=== PATIENT | female | born 1960 | race Caucasian/White ===

== ENCOUNTER → 2020-02-16 11:39 | Outpatient (BNVA) | payer OTHER, SELFPAY | PROVIDERS: PCP Internal Medicine; Referring Provider Internal Medicine; Visit Provider Obstetrics & Gynecology | DX: Z76.89 Persons encountering health services in other specified circumstances (principal) ==

== ENCOUNTER 2020-02-22 13:15 | Emergency (ER) | payer OTHER, SELFPAY ==
[2020-02-22 13:25] VITALS: BP 133/90; PULSE 73; RESP 17; TEMP 35.2; O2SAT 98; BMI 30.7
--- NOTE | 2020-02-22 13:44 | ECG_ITS ---
Test Reason : ANXIETY Blood Pressure : / mmHG Vent. Rate : 079 BPM Atrial Rate : 079 BPM P-R Int : 144 ms QRS Dur : 076 ms QT Int : 378 ms P-R-T Axes : 052 029 022 degrees QTc Int : 433 ms Normal sinus rhythm RSR' or QR pattern in V1 suggests right ventricular conduction delay Otherwise normal ECG When compared with ECG of 14-NOV-2012 20:10, No significant change was found Referred By: Salina Silva Electronically Signed By:ALEX WILSON MD
--- NOTE | 2020-02-22 13:46 | ED_ITS ---
HPI - Anxiety General Chief Complaint: Anxiety Stated Complaint: difficulty breathing Time Seen by Provider: 02/22/20 13:39 Source: patient Mode of arrival: ambulatory Limitations: no limitations History of Present Illness HPI narrative: patient comes to the emergency room after having a panic attack at work. Patient states since March of last year her anxiety has gradually been worsening after from her partner. Patient states she is being treated with p.o. medication for anxiety. This morning she did not take her medication. patient states that for the last 4-5 days she has been asked to do a new task at work which she has difficulty performing. That created anxiety and drove her into a panic attack. At this time, patient states that she feels better, patient drove herself from her workplace. Patient states while she was having the panic attack she was having shortness of breath and left-sided neck pain which all resolved now. patient states she has had multiple episodes of anx iety and panic attacks in the past. All similar. Related Data Home Medications Medication Instructions Recorded Confirmed buspirone 10 mg tablet 10 mg PO BID 02/16/20 02/16/20 levothyroxine 100 mcg tablet 100 mcg PO DAILY 02/16/20 02/16/20 losartan 50 mg tablet 50 mg PO DAILY 02/16/20 02/16/20 pravastatin 20 mg tablet mg PO 02/16/20 02/16/20 Allergies Allergy/AdvReac Type Severity Reaction Status Date / Time Penicillins [PENICILLINS] Allergy Intermediate RASH Unverified 02/16/20 11:40 vancomycin [VANCOMYCIN] Allergy Intermediate ITCHY, RED Unverified 02/16/20 11:40 BLOTCHES. lisinopril Allergy Unknown cough Verified 02/16/20 11:40 Review of Systems Review of Systems: Constitutional : No Weight loss, No Fever, No Chills, No Night Sweats, No Fatigue, No Malaise ENT/Mouth : No Hearing loss, No Ear Pain, No Nasal Congestion, No Sinus Pain, No Hoarseness, No sore throat, No Rhinorrhea, No Swallowing Difficulty Eyes: No Eye Pain, No Swelling, No Redness, No Foreign Body, No Discharge, No Vision Changes Cardiovascular : chest pressure with the panic attack no results., No SOB, No Dyspnea on Exertion, No Orthopnea, No Edema, No Palpitations Respiratory : No Cough, No Sputum, No Wheezing, No Smoke Exposure, Shortness of breath with panic attack Gastrointestinal : No Nausea, No Vomiting, No Diarrhea, No Constipation, No abdominal Pain, No Hematochezia, No Melena Genitourinary : no irregular bleeding, No Dysuria, No Urinary Frequency, No Hematuria, No Urinary Incontinence, No Urgency, No Flank Pain, No Urinary Flow Changes, No Hesitancy Musculoskeletal : No joint pain, No Myalgias, No Joint Swelling Skin : No Skin Lesions, No rash Neuro : No Weakness, No Numbness, No Paresthesias, No Loss of Consciousness, No Dizziness, No Headache Psych : Anxiety and panic attack, No Depression, No SI/HI/AH/VH, No Social Issues, Heme/Lymph: No Bruising, No Bleeding,No Lymphadenopathy Endocrine : No Polyuria, No Polydipsia, No Temperature Intolerance [facility] Past Medical History Medical History Anxiety Depression HTN (hypertension) Hyperlipemia Hypothyroidism Surgical History H/O abdominoplasty H/O bilateral breast reduction surgery History of removal of cyst Social History Social History Alcohol intake: never Smoking Status: Never smoker Advance Directives: No Advance Directives Information Provided: Yes Sexual orientation: Straight/Heterosexual Gender identity: female Physical Exam Vital Signs: Vital Signs: Vital Signs Temp Pulse Resp BP Pulse Ox 02/22/20 13:25 95.3 F L 73 17 133/90 H 98 Body Mass Index 30.7 Appearance: Alert. Oriented X3. No acute distress. mildly anxious, tearing Eyes: Pupils equal, round and reactive to light. ENT: Pharynx normal. Neck: Normal inspection. Neck supple. No lymph nodes noted. No crepitus CVS: Normal heart rate and rhythm. Pulses normal. Normal S1 and S2 Respiratory: No respiratory distress. Breath sounds normal. No Wheezing. No rales Abdomen: Soft and nontender. No rigidity. No distention. good BS x4 Skin: Skin warm and dry. Normal skin color. Normal skin turgor. Extremities: No lower extremity edema. No lower extremity edema. No Lacerations. No Rash Neuro: Oriented X 3. No motor deficit. No sensory deficit. Moving all exte rmities. No slurred speech. Course Course Course Narrative: patient had a panic attack, EKG within normal limits. After Ativan patient feeling much better. Patient be discharged home. I discussed with the patient, that ideally she should be treated for anxiety with both medication and Therapy. She will discuss this with her primary care physician. Discharge Plan Discharge Clinical Impression: Acute anxiety Patient Disposition: Home, Self-Care Instructions: Anxiety (ED) Additional Instructions: Please follow-up with your primary care physician tomorrow. If you have any worsening or new symptoms, please return to the emergency room or call 911 Prescriptions: No Action pravastatin 20 mg tablet PO RF: 0 levothyroxine 100 mcg tablet 100 mcg PO DAILY RF: 0 losartan 50 mg tablet 50 mg PO DAILY RF: 0 buspirone 10 mg tablet 10 mg PO BID RF: 0
[2020-02-22] MEDS: hydrOXYzine HCL 50 MG TABLET PO (15:03)
[2020-02-24 22:27] LABS: CA-125 4 U/mL (<35)
== END 2020-02-22 15:09 | disposition home or self-care (01) ==
PROVIDERS: Obstetrics & Gynecology; Emergency Provider Emergency Medicine; PCP Internal Medicine
DX: F41.1 Generalized anxiety disorder (principal); F43.0 Acute stress reaction; Z79.899 Other long term (current) drug therapy
CPT/HCPCS: 86304; 93005; 99283

== ENCOUNTER 2020-02-22 15:23 | Outpatient (REF) | payer OTHER, SELFPAY | END 2020-02-22 15:24 | disposition home or self-care (01) | LOC: HO.LAB 15:23 | PROVIDERS: PCP Internal Medicine; Visit Provider Obstetrics & Gynecology | DX: Z13.89 Encounter for screening for other disorder (principal) ==

== ENCOUNTER 2020-03-05 14:51 | Outpatient (REF) | payer OTHER, SELFPAY ==
[2020-03-05 15:15] LABS: MANUAL DIFF FLAG NO
[2020-03-05 15:17] LABS: Basophils Percent Auto 0.4 % (0-2); Eosinophils Absolute Auto 0.1 X10*3/uL (0.0-0.4); Eosinophils Percent Auto 1.5 % (0-4); Hematocrit 38.2 % (37-47); Hemoglobin 12.1 g/dl (12.0-16.0); Imm Gran Abs Auto 0.02 X10*3/uL (0.00-0.03); Imm Gran Pct Auto 0.3 % (0.0-0.4); Lymphocytes Absolute Auto 2.5 X10*3/uL (1.2-4.9); Lymphocytes Percent Auto 35.8 % (20-40); Mean Corpuscular HGB Conc 31.7 g/dl (31.0-35.0); Mean Corpuscular Hemoglobin 27.6 pg (27.0-33.0); Mean Platelet Volume 10.4 fL (9.4-12.3); Monocytes Absolute Auto 0.6 X10*3/uL (0.1-1.2); Neutrophils Absolute Auto 3.7 X10*3/uL (2.0-8.3); Platelet Count 232 X10*3/uL (160-400); Red Blood Count 4.39 X10*6/uL (4.20-5.50); Red Cell Distribution Width 12.6 % (11.0-16.0); White Blood Count 6.9 X10*3/uL (4.8-10.8)
[2020-03-05 15:41] LABS: Alanine Aminotransferase 23 U/L (0-31); Albumin Level 4.2 g/dL (3.5-5.0); Alkaline Phosphatase 91 U/L (39-117); Anion Gap 10 (12-20); Aspartate Amino Transferase 24 U/L (5-31); Bilirubin Total 0.6 mg/dL (0.0-1.0); Blood Urea Nitrogen 15 mg/dL (9-16); Calcium 8.8 mg/dL (8.4-10.2); Carbon Dioxide 29 mmol/L (22-29); Chloride 105 mmol/L (96-108); Estimated Glomerular Filt Rate 46; Glucose Random 80 mg/dL (60-115); Potassium 4.1 mmol/l (3.3-5.1); Sodium 140 mmol/L (135-145); Total Protein 6.6 g/dL (6.5-8.0)
[2020-03-05 16:03] LABS: Free T4 (Free Thyroxine) 1.27 ng/dL (0.71-1.85); Vitamin D 25-OH Total 22.6 ng/mL (>30)
== END 2020-03-05 14:52 | disposition home or self-care (01) ==
LOC: HO.LAB 14:51
PROVIDERS: PCP Internal Medicine; Visit Provider Internal Medicine
DX: I10 Essential (primary) hypertension (principal); E03.9 Hypothyroidism, unspecified; E55.9 Vitamin D deficiency, unspecified; G47.33 Obstructive sleep apnea (adult) (pediatric)
CPT/HCPCS: 36415; 80053; 82306; 84439; 84443; 85025

== ENCOUNTER 2020-03-06 15:15 | Outpatient (REF) | payer OTHER, SELFPAY ==
--- NOTE | 2020-03-06 15:19 | US_ITS ---
EXAMINATION: US PELVIS COMPLETE US PELVIS ENDOVAGINAL CLINICAL INFORMATION: Other ovarian cyst, left side COMPARISON: 09/15/2019 and 11/09/2015 TECHNIQUE: Transabdominal and transvaginal images of the pelvis were obtained. FINDINGS: UTERUS: Surgically absent status post hysterectomy. RIGHT OVARY: Not seen. LEFT OVARY: Left ovary measures 2.0 x 1.1 x 1.1 cm. Exophytic from the left ovary is a 2.9 x 2.5 x 2.3 cm cyst with internal septations and several peripheral coarse calcifications. This is been present on prior studies with a similar appearance. It measured 2.9 x 2.5 x 2.2 cm on the recent ultrasound 09/15/2019. It was also seen on the prior pelvic ultrasound 11/09/2015 at which time it measured 2.9 x 2.1 x 2.6 cm. There was present in most 2.9 cm in diameter on the CT scan 10/22/2015. FREE FLUID: No pelvic free fluid. US/US pelvic complete IMPRESSION: Again seen is a mildly complex cyst exophytic from the left ovary at most 2.9 cm in diameter. Although a cyst greater than 1 cm is considered an abnormal finding in a postmenopausal female patient, this finding has been stable for 4+ years, reassuring of a benign etiology.
--- NOTE | 2020-03-06 15:19 | US_ITS ---
EXAMINATION: US PELVIS COMPLETE US PELVIS ENDOVAGINAL CLINICAL INFORMATION: Other ovarian cyst, left side COMPARISON: 09/15/2019 and 11/09/2015 TECHNIQUE: Transabdominal and transvaginal images of the pelvis were obtained. FINDINGS: UTERUS: Surgically absent status post hysterectomy. RIGHT OVARY: Not seen. LEFT OVARY: Left ovary measures 2.0 x 1.1 x 1.1 cm. Exophytic from the left ovary is a 2.9 x 2.5 x 2.3 cm cyst with internal septations and several peripheral coarse calcifications. This is been present on prior studies with a similar appearance. It measured 2.9 x 2.5 x 2.2 cm on the recent ultrasound 09/15/2019. It was also seen on the prior pelvic ultrasound 11/09/2015 at which time it measured 2.9 x 2.1 x 2.6 cm. There was present in most 2.9 cm in diameter on the CT scan 10/22/2015. FREE FLUID: No pelvic free fluid. US/US transvaginal IMPRESSION: Again seen is a mildly complex cyst exophytic from the left ovary at most 2.9 cm in diameter. Although a cyst greater than 1 cm is considered an abnormal finding in a postmenopausal female patient, this finding has been stable for 4+ years, reassuring of a benign etiology.
== END 2020-03-06 15:16 | disposition home or self-care (01) ==
LOC: HO.US 15:15
PROVIDERS: PCP Internal Medicine; Visit Provider Obstetrics & Gynecology
DX: N83.292 Other ovarian cyst, left side (principal)
CPT/HCPCS: 76830; 76856

== ENCOUNTER → 2020-03-08 11:05 | Outpatient (BNVA) | payer OTHER, SELFPAY | PROVIDERS: PCP Internal Medicine; Visit Provider Obstetrics & Gynecology | DX: Z76.89 Persons encountering health services in other specified circumstances (principal) ==

== ENCOUNTER 2020-03-10 09:14 | Outpatient (REF) | payer OTHER, SELFPAY ==
[2020-03-12 19:12] LABS: CA-125 5 U/mL (<35)
== END 2020-03-10 09:15 | disposition home or self-care (01) ==
LOC: HO.LAB 09:14
PROVIDERS: PCP Internal Medicine; Visit Provider Obstetrics & Gynecology
DX: N83.292 Other ovarian cyst, left side (principal)
CPT/HCPCS: 86304

== ENCOUNTER 2020-03-16 13:27 | Outpatient (REF) | payer OTHER, SELFPAY | END 2020-03-16 13:28 | disposition home or self-care (01) | LOC: HO.LAB 13:27 | PROVIDERS: Visit Provider Internal Medicine | DX: Z20.828 Contact with and (suspected) exposure to other viral communicable diseases (principal) | CPT/HCPCS: C9803; U0003 ==

== ENCOUNTER 2020-08-30 18:23 | Emergency (ER) | payer OTHER, SELFPAY ==
--- NOTE | ~2020-08-30 | US_ITS ---
EXAMINATION: BILATERAL LOWER EXTREMITY DEEP VENOUS ULTRASOUND CLINICAL INFORMATION: Bilateral lower extremity pain and edema. COMPARISON: No similar prior examinations are available for comparison. TECHNIQUE: Duplex Doppler imaging with compression maneuvers were performed of the bilateral lower extremity deep venous systems. FINDINGS: The bilateral visualized common femoral, femoral and popliteal veins demonstrate normal compressibility and color flow without evidence of venous thrombosis. Visualized portions of the bilateral calf veins demonstrate normal color fill-in suggesting patency. There is no evidence of a Chapin's cyst. US/US venous duplex LE BI IMPRESSION: No evidence of deep venous thrombosis involving the bilateral lower extremities.
[2020-08-30 18:27] VITALS: BP 141/78; PULSE 90; RESP 18; TEMP 36.6; O2SAT 97; BMI 30.4
--- NOTE | 2020-08-30 19:35 | ED.EXTPRO ---
HPI - Extremity Problem General Chief complaint: Extremity Problem Stated complaint: Leg pain Time Seen by Provider: 08/30/20 19:24 Source: patient Mode of arrival: ambulatory Limitations: no limitations History of Present Illness HPI Narrative: 59-year-old female with past medical history of anxiety, depression, hypertension, hyperlipidemia, hypothyroidism presents with 3 weeks of weakness. Patient states she felt fine prior to receiving Raffaele Raffaele vaccine. Since she received the vaccine she had felt a week, her legs felt heavy and swollen. She does not describe any other symptoms, denies chest pain or pressure, palpitations, shortness of breath, shortness breath on exertion, pain on inspiration, abdominal pain, abdominal distention, dysuria, hematuria, fevers, chills, nausea, vomiting, diarrhea, constipation, and any other concerning symptoms. Related Data Home Medications Medication Instructions Recorded Confirmed buspirone 10 mg tablet 10 mg PO BID 02/16/20 03/08/20 levothyroxine 100 mcg tablet 100 mcg PO DAILY 02/16/20 03/08/20 losartan 50 mg tablet 50 mg PO DAILY 02/16/20 03/08/20 pravastatin 20 mg tablet mg PO 02/16/20 03/08/20 Allergies Allergy/AdvReac Type Severity Reaction Status Date / Time Penicillins [PENICILLINS] Allergy Intermediate RASH Verified 08/30/20 19:27 vancomycin [VANCOMYCIN] Allergy Intermediate ITCHY, RED Verified 08/30/20 19:27 BLOTCHES. lisinopril Allergy Unknown cough Verified 08/30/20 19:27 Review of Systems Review of Systems: Constitutional: Positive weakness, No Fever, No Chills ENT/Mouth: No Ear Pain, No Hoarseness, No sore throat Eyes: No Eye Pain, No Swelling, No Redness, No Foreign Body Cardiovascular: No Chest Pain, No SOB Respiratory: No Cough, No Dyspnea Gastrointestinal: No Nausea, No Vomiting, No Diarrhea, No abdominal Pain Genitourinary: No Dysuria, No Hematuria Musculoskeletal: positive bilateral leg pain and swelling, No Myalgias, No Joint Swelling Skin: No Skin lacerations, No rash Neuro: No Weakness, No Numbness, No Paresthesias, No Loss of Consciousness, No Dizziness, No Headache Psych: No Anxiety/Panic, No Depression Heme/Lymph: no easy bruising, no Lymphadenopathy Endocrine: No Polyuria, No Polydipsia Yes all other systems are reviewed and are negative PMFSH Past Medical History Attestation statement: The following information was validated with the patient. Source: old records reviewed Medical History Anxiety Depression HTN (hypertension) Hyperlipemia Hypothyroidism Surgical History H/O abdominoplasty H/O bilateral breast reduction surgery History of removal of cyst Social History Social History Alcohol intake: never Smoking Status: Never smoker Advance Directives: No Advance Directives Information Provided: Yes Patient : No Sexual orientation: Straight/Heterosexual Gender identity: female Physical Exam Vital Signs: Vital Signs: Last Vital Signs Temp 97.9 F 08/30/20 18:27 Pulse 64 08/30/20 21:33 Resp 16 08/30/20 21:33 BP 125/88 08/30/20 21:33 Pulse Ox 98 08/30/20 21:33 Body Mass Index 30.4 Appearance: Alert. Oriented X3. No acute distress. Head: Normal external exam. Normocephalic. Atraumatic. No Hand signs noted. No raccoon eyes noted Eyes: PERRLA. EOMI. Conjunctiva and sclera normal. Eyelids normal. ENT: TM's Normal. Pharynx normal. Uvula midline. Moist mucous membranes. No trismus noted. No drooling noted. No muffled voice noted. Neck: Normal inspection. Neck supple. No adenopathy. Thyroid Normal. No meningeal signs. No neck mass noted. CVS: Normal heart rate and rhythm. Heart sound normal. No murmurs noted. Pulses equal to all extremities. Respiratory: No respiratory distress. Painless inspiration. Breath sounds normal. No wheezes/rales/rhonchi noted. Chest nontender. No accessory muscle usage noted or decreased air movement noted. Abdomen: Soft and nontender. Bowel sounds normal in all 4 quadrants. No distention noted. No organomegaly noted. No visible injury noted. Back: No CVA tenderness. Full range of motion noted. Skin: Skin warm and dry. Normal skin color. Normal skin turgor. No rashes/lesions/lacerations noted. Extremities: No appreciated extremity edema. Extremities exhibit normal range of motion. Extremities nontender. Neuro: cranial nerves 2-12 intact, no focal neural deficits, strength 5/5 to all extremities, No motor deficit. No sensory deficit. Course Course Course Narrative: 59-year-old female presents with complaints of weakness, bilateral leg pain and swelling after receiving a Raffaele and Raffaele vaccine. Will order CBC, Chem 7, and bilateral venous duplex. I do not appreciate any swelling or edema, however based on patient's complaints over the past 3 weeks, will order duplex. CBC and Chem 7 are negative, urinalysis is negative. Bilateral venous duplex negative for acute findings, no blood clots noted. Plan of care is to discharge home and have patient follow-up with primary care provider as needed. Patient verbalized understanding of and agrees to plan of care. MDM - Extremity (Nontraumatic) Differential Diagnosis Differential diagnosis: Likely lower extremity edema and deep vein thrombosis of lower extremity Medical Records Attestation: I reviewed the patient's medical records. Lab Data Attestation: I reviewed the patient's lab results. Result diagrams: 08/30/20 19:49 08/30/20 19:49 Labs: Lab Results 08/30/20 08/30/20 08/30/20 Range/Units 19:49 19:49 20:05 WBC 6.7 (4.8-10.8) X10*3/uL RBC 4.44 (4.20-5.50) X10*6/uL Hgb 12.6 (12.0-16.0) g/dl Hct 38.3 (37-47) % MCV 86.3 (80-98) fL MCH 28.4 (27.0-33.0) pg MCHC 32.9 (31.0-35.0) g/dl RDW 12.5 (11.0-16.0) % Plt Count 220 (160-400) X10*3/uL MPV 10.9 (9.4-12.3) fL Immature Gran % (Auto) 0.0 (0.0-0.4) % Neut % (Auto) 50.5 (45-73) % Lymph % (Auto) 38.6 (20-40) % [place] % (Auto) 8.4 (2-11) % Eos % (Auto) 1.7 (0-4) % Baso % (Auto) 0.8 (0-2) % Lymph # (Auto) 2.6 (1.2-4.9) X10*3/uL [place] # (Auto) 0.6 (0.1-1.2) X10*3/uL Eos # (Auto) 0.1 (0.0-0.4) X10*3/uL Baso # (Auto) 0.1 (0.0-0.2) X10*3/uL Abs Immat Gran (auto) 0.00 (0.00-0.03) X10*3/uL Absolute Neuts (auto) 3.4 (2.0-8.3) X10*3/uL Absolute Nucleated RBC 0.000 (0.0-0.012) X10*3/uL Nucleated RBC % (auto) 0.0 (0.0-0.2) /100WBC Sodium 141 (135-145) mmol/L Potassium 3.7 (3.3-5.1) mmol/L Chloride 104 (96-108) mmol/L Carbon Dioxide 29 (22-29) mmol/L Anion Gap 12 (12-20) BUN 19 H (9-16) mg/dL Creatinine 1.16 (0.5-1.4) mg/dL Estim Creat Clear Calc 57.5 Estimated GFR 48 Random Glucose 123 H D (60-115) mg/dL Calcium 9.7 D (8.4-10.2) mg/dL Urine Color YELLOW Urine Appearance CLEAR Urine pH 5.5 (5.0-8.0) Ur Specific [place] >= 1.030 H (1.005-1.025) Urine Protein NEG (NEG-TRACE) MG/DL Urine Glucose (UA) NEG (NEG) MG/DL Urine Ketones NEG (NEG) MG/DL Urine Blood NEG (NEG) Urine Nitrite NEG (NEG) Ur Leukocyte Esterase NEG (NEG) Imaging Data Bilateral venous duplex: Attestation: I personally reviewed and interpreted this imaging study as follows: Radiologist's impression: EXAMINATION: BILATERAL LOWER EXTREMITY DEEP VENOUS ULTRASOUND CLINICAL INFORMATION: Bilateral lower extremity pain and edema. COMPARISON: No similar prior examinations are available for comparison. TECHNIQUE: Duplex Doppler imaging with compression maneuvers were performed of the bilateral lower extremity deep venous systems. FINDINGS: The bilateral visualized common femoral, femoral and popliteal veins demonstrate normal compressibility and color flow without evidence of venous thrombosis. Visualized portions of the bilateral calf veins demonstrate normal color fill-in suggesting patency. There is no evidence of a Chapin's cyst. US/US venous duplex LE BI IMPRESSION: No evidence of deep venous thrombosis involving the bilateral lower extremities. Discharge Plan Discharge Clinical Impression: Vaccine reaction Patient Disposition: Home, Self-Care Instructions: Weakness (ED) Additional Instructions: You were evaluated for leg pain and weakness that started after receiving a COVID-19 vaccine. Your lab values are normal, we did a bilateral venous duplex of both legs which were negative for blood clots. Please follow-up with primary care provider. Thank you for choosing this emergency department for evaluation. Please follow-up with primary care physician as needed. Return to the emergency department for any new, concerning, or worsening symptoms. Prescriptions: No Action pravastatin 20 mg tablet PO RF: 0 levothyroxine 100 mcg tablet 100 mcg PO DAILY RF: 0 losartan 50 mg tablet 50 mg PO DAILY RF: 0 buspirone 10 mg tablet 10 mg PO BID RF: 0 Interventions: ED Discharge Assessment Last Done: 08/30/20 22:07 Discharge Date/Time: 08/30/20 22:09
--- NOTE | 2020-08-30 19:35 | PC.NURSE ---
PT AMB TO [facility] WITH STEADY GAIT. PT STATES HAD BUSTER BUSTER VACCINE 3 WEEKS AGO AND NOW C/O BILAT CALF PAIN RAD UP INTO THIGHS. PPP. NEUROVASC INTACT.
[2020-08-30 19:55] LABS: Basophils Absolute Auto 0.1 X10*3/uL (0.0-0.2); Basophils Percent Auto 0.8 % (0-2); Eosinophils Absolute Auto 0.1 X10*3/uL (0.0-0.4); Eosinophils Percent Auto 1.7 % (0-4); Hematocrit 38.3 % (37-47); Hemoglobin 12.6 g/dl (12.0-16.0); Lymphocytes Absolute Auto 2.6 X10*3/uL (1.2-4.9); Lymphocytes Percent Auto 38.6 % (20-40); MANUAL DIFF FLAG NO; Mean Corpuscular HGB Conc 32.9 g/dl (31.0-35.0); Mean Corpuscular Hemoglobin 28.4 pg (27.0-33.0); Mean Corpuscular Volume 86.3 fL (80-98); Mean Platelet Volume 10.9 fL (9.4-12.3); Monocytes Absolute Auto 0.6 X10*3/uL (0.1-1.2); Monocytes Percent Auto 8.4 % (2-11); Neutrophils Absolute Auto 3.4 X10*3/uL (2.0-8.3); Neutrophils Percent Auto 50.5 % (45-73); Platelet Count 220 X10*3/uL (160-400); Red Blood Count 4.44 X10*6/uL (4.20-5.50); Red Cell Distribution Width 12.5 % (11.0-16.0); White Blood Count 6.7 X10*3/uL (4.8-10.8)
[2020-08-30 20:19] LABS: Anion Gap 12 (12-20); Blood Urea Nitrogen 19 mg/dL (9-16); Calcium 9.7 mg/dL (8.4-10.2); Carbon Dioxide 29 mmol/L (22-29); Chloride 104 mmol/L (96-108); Creatinine Clr Calc Pharmacy 57.5; Estimated Glomerular Filt Rate 48; Glucose Random 123 mg/dL (60-115); Potassium 3.7 mmol/L (3.3-5.1); Sodium 141 mmol/L (135-145)
[2020-08-30 20:24] LABS: Glucose Urine UA NEG (NEG); Leukocyte Esterase Urine NEG (NEG); Nitrite Urine NEG (NEG); PH 5.5 (5.0-8.0); Specific Gravity - Urine >= 1.030 (1.005-1.025); Urine Blood NEG (NEG); Urine Ketones NEG (NEG); Urine Protein NEG (NEG-TRACE)
[2020-08-30 20:25] LABS: Appearance Urine CLEAR; Color Urine YELLOW
[2020-08-30 21:33] VITALS: BP 125/88; PULSE 64; RESP 16; O2SAT 98
== END 2020-08-30 22:09 | disposition home or self-care (01) ==
PROVIDERS: Nurse Practitioner Family; Emergency Provider Internal Medicine; PCP Internal Medicine
DX: R53.1 Weakness (principal); T50.B95A Adverse effect of other viral vaccines, initial encounter; Y92.019 Unspecified place in single-family (private) house as the place of occurrence of the external cause; M79.662 Pain in left lower leg; M79.661 Pain in right lower leg; I10 Essential (primary) hypertension; E78.5 Hyperlipidemia, unspecified; Z79.02 Long term (current) use of antithrombotics/antiplatelets
CPT/HCPCS: 36415; 80048; 81003; 85025; 93970; 99284

== ENCOUNTER 2020-09-26 06:56 | Outpatient (REF) | payer OTHER, SELFPAY ==
[2020-09-26 07:42] LABS: MANUAL DIFF FLAG NO
[2020-09-26 07:58] LABS: Basophils Percent Auto 0.4 % (0-2); Eosinophils Absolute Auto 0.1 X10*3/uL (0.0-0.4); Eosinophils Percent Auto 1.9 % (0-4); Hematocrit 39.5 % (37-47); Hemoglobin 12.5 g/dl (12.0-16.0); Imm Gran Abs Auto 0.02 X10*3/uL (0.00-0.03); Imm Gran Pct Auto 0.3 % (0.0-0.4); Lymphocytes Absolute Auto 2.2 X10*3/uL (1.2-4.9); Lymphocytes Percent Auto 30.9 % (20-40); Mean Corpuscular HGB Conc 31.6 g/dl (31.0-35.0); Mean Corpuscular Hemoglobin 27.5 pg (27.0-33.0); Mean Platelet Volume 11.1 fL (9.4-12.3); Monocytes Absolute Auto 0.6 X10*3/uL (0.1-1.2); Monocytes Percent Auto 8.1 % (2-11); Neutrophils Absolute Auto 4.1 X10*3/uL (2.0-8.3); Neutrophils Percent Auto 58.4 % (45-73); Platelet Count 236 X10*3/uL (160-400); Red Blood Count 4.54 X10*6/uL (4.20-5.50); Red Cell Distribution Width 12.6 % (11.0-16.0)
[2020-09-26 08:41] LABS: Alanine Aminotransferase 20 U/L (0-31); Albumin Level 4.1 g/dL (3.5-5.0); Alkaline Phosphatase 100 U/L (39-117); Anion Gap 14 (12-20); Aspartate Amino Transferase 19 U/L (5-31); Bilirubin Total 0.4 mg/dL (0.0-1.0); Blood Urea Nitrogen 23 mg/dL (9-16); Calcium 9.2 mg/dL (8.4-10.2); Carbon Dioxide 27 mmol/L (22-29); Chloride 105 mmol/L (96-108); Cholesterol 219 mg/dL; Estimated Glomerular Filt Rate 46; Glucose Fasting 102 mg/dL (60-99); HDL Cholesterol 37 mg/dL; Potassium 4.5 mmol/L (3.3-5.1); Sodium 141 mmol/L (135-145); Total Protein 6.2 g/dL (6.5-8.0); Triglycerides 614 mg/dL
[2020-09-26 09:05] LABS: Free T4 (Free Thyroxine) 1.03 ng/dL (0.71-1.85); Thyroid Stimulating Hormone 3.17 uIU/mL (0.32-4.0); Vitamin D 25-OH Total 20.2 ng/mL (>30)
== END 2020-09-26 06:57 | disposition home or self-care (01) ==
LOC: HO.LAB 06:56
PROVIDERS: PCP Internal Medicine; Visit Provider Internal Medicine
DX: Z01.419 Encounter for gynecological examination (general) (routine) without abnormal findings (principal); I10 Essential (primary) hypertension; R10.9 Unspecified abdominal pain; E03.9 Hypothyroidism, unspecified; E78.00 Pure hypercholesterolemia, unspecified; E55.9 Vitamin D deficiency, unspecified
CPT/HCPCS: 36415; 80053; 80061; 82306; 84439; 84443; 85025

== ENCOUNTER 2020-10-19 15:35 | Outpatient (REF) | payer OTHER, SELFPAY ==
--- NOTE | ~2020-10-19 | MM_ITS ---
EXAMINATION: MM SCREENING DIGITAL BREAST TOMOSYNTHESIS, BILATERAL CLINICAL INFORMATION: Screening. Asymptomatic. The lifetime risk of breast cancer based on the Tyrer-Cuzick Model is 7.4%. COMPARISON: Mammography: December 03, 2018 and studies dating back to November 22, 2012 TECHNIQUE: Digital breast tomosynthesis is performed in both the craniocaudal and mediolateral oblique views along with computer-aided detection (CAD). Synthesized 2D images are generated from the tomosynthesis. FINDINGS: There are scattered areas of fibroglandular density (ACR BI-RADS breast composition Category b). There is no significant change from previous studies. Bilateral architectural distortion from previous surgery with scarring is again seen. MM/MM tomosynthesis screening BI IMPRESSION: There are no significant changes from prior study. ASSESSMENT: BI-RADS 2: Benign RECOMMENDATION: Routine annual mammography screening. This patient's information was entered into a reminder system with a target due date for their next mammogram.
== END 2020-10-19 15:36 | disposition home or self-care (01) ==
LOC: HO.MAMMO 15:35
PROVIDERS: Visit Provider Internal Medicine
DX: Z12.31 Encounter for screening mammogram for malignant neoplasm of breast (principal)
CPT/HCPCS: 77063; 77067

== ENCOUNTER 2021-01-21 14:35 | Outpatient (REF) | payer OTHER, SELFPAY ==
[2021-01-21 15:44] LABS: MANUAL DIFF FLAG NO
[2021-01-21 15:57] LABS: Basophils Percent Auto 0.7 % (0-2); Eosinophils Absolute Auto 0.2 X10*3/uL (0.0-0.4); Eosinophils Percent Auto 3.6 % (0-4); Hematocrit 38.4 % (37-47); Hemoglobin 12.1 g/dl (12.0-16.0); Imm Gran Abs Auto 0.01 X10*3/uL (0.00-0.03); Imm Gran Pct Auto 0.2 % (0.0-0.4); Lymphocytes Absolute Auto 1.4 X10*3/uL (1.2-4.9); Lymphocytes Percent Auto 33.6 % (20-40); Mean Corpuscular HGB Conc 31.5 g/dl (31.0-35.0); Mean Corpuscular Hemoglobin 27.3 pg (27.0-33.0); Mean Corpuscular Volume 86.7 fL (80-98); Mean Platelet Volume 11.4 fL (9.4-12.3); Monocytes Absolute Auto 0.5 X10*3/uL (0.1-1.2); Monocytes Percent Auto 11.8 % (2-11); Neutrophils Absolute Auto 2.1 X10*3/uL (2.0-8.3); Neutrophils Percent Auto 50.1 % (45-73); Platelet Count 191 X10*3/uL (160-400); Red Blood Count 4.43 X10*6/uL (4.20-5.50); Red Cell Distribution Width 13.1 % (11.0-16.0); White Blood Count 4.2 X10*3/uL (4.8-10.8)
[2021-01-21 16:07] LABS: Alanine Aminotransferase 19 U/L (0-31); Albumin Level 4.3 g/dL (3.5-5.0); Alkaline Phosphatase 92 U/L (39-117); Anion Gap 12 (12-20); Aspartate Amino Transferase 22 U/L (5-31); Bilirubin Total 0.8 mg/dL (0.0-1.0); Blood Urea Nitrogen 14 mg/dL (9-16); C Reactive Protein 0.71 mg/dL (< or = 0.50); Calcium 9.3 mg/dL (8.4-10.2); Carbon Dioxide 27 mmol/L (22-29); Chloride 105 mmol/L (96-108); Estimated Glomerular Filt Rate 47; Glucose Random 86 mg/dL (60-115); Potassium 4.3 mmol/L (3.3-5.1); Sodium 140 mmol/L (135-145); Total Protein 6.8 g/dL (6.5-8.0)
[2021-01-21 16:28] LABS: Free T4 (Free Thyroxine) 0.99 ng/dL (0.71-1.85); Thyroid Stimulating Hormone 3.12 uIU/mL (0.32-4.0); Vitamin D 25-OH Total 23.6 ng/mL (>30)
== END 2021-01-21 14:36 | disposition home or self-care (01) ==
LOC: HO.LAB 14:35
PROVIDERS: PCP Internal Medicine; Visit Provider Internal Medicine
DX: E03.9 Hypothyroidism, unspecified (principal); I10 Essential (primary) hypertension; E55.9 Vitamin D deficiency, unspecified; L03.90 Cellulitis, unspecified
CPT/HCPCS: 36415; 80053; 82306; 84439; 84443; 85025; 86140

== ENCOUNTER 2021-01-23 12:32 | Emergency (ER) | payer OTHER, SELFPAY ==
--- NOTE | ~2021-01-23 | US_ITS ---
EXAMINATION: US VENOUS ULTRASOUND WITH DOPPLER LOWER EXTREMITY, BILATERAL CLINICAL INFORMATION: Bilateral lower extremity pain and swelling. Assess for occult DVT. COMPARISON: Bilateral lower extremity venous ultrasound 08/30/2020 TECHNIQUE: Ultrasound of the deep veins is performed from the hip to the calf with compression sonography and color and pulse Doppler assessment. Spectral analysis with color-flow imaging is performed. FINDINGS: RIGHT: There is normal venous compression and respiratory variation and augmented flow. The visualized common femoral vein, superficial femoral vein, profunda femoral vein, popliteal vein, and the trifurcation region shows no evidence of deep venous thrombosis. No popliteal fossa cyst demonstrated. LEFT: There is normal venous compression and respiratory variation and augmented flow. The visualized common femoral vein, superficial femoral vein, profunda femoral vein, popliteal vein, and the trifurcation region shows no evidence of deep venous thrombosis. No popliteal fossa cyst demonstrated. US/US venous duplex LE BI IMPRESSION: No DVT demonstrated in the bilateral lower extremity.
[2021-01-23 12:53] VITALS: BP 136/85; PULSE 70; RESP 16; TEMP 36.9; O2SAT 100; BMI 31.4
[2021-01-23 12:54] VITALS: BP 136/85; PULSE 63; RESP 18; TEMP 36.9; O2SAT 100; BMI 31.4
--- NOTE | 2021-01-23 14:25 | ECG_ITS ---
Test Reason : EXTREMETY INJURY Blood Pressure : / mmHG Vent. Rate : 053 BPM Atrial Rate : 053 BPM P-R Int : 170 ms QRS Dur : 080 ms QT Int : 432 ms P-R-T Axes : 020 028 025 degrees QTc Int : 405 ms Sinus bradycardia Otherwise normal ECG When compared with ECG of 22-FEB-2020 13:57, Vent. rate has decreased BY 26 BPM Referred By: Gabriel Jane Electronically Signed By:DIPESH PANDA
--- NOTE | 2021-01-23 14:33 | ED_ITS ---
HPI - Extremity Problem General Chief complaint: Extremity Injury, Upper Stated complaint: lt leg pain Time Seen by Provider: 01/23/21 14:25 Source: patient Mode of arrival: ambulatory Limitations: no limitations History of Present Illness HPI Narrative: 6-year-old female past medical history of hypertension, hypoth yroidism and dyslipidemia presents the emergency department with a bilateral leg swelling, pain and an overlying rash X3days. She states that she saw her PCP yesterday who told her this was cellulitis to the left lower extremity. She was started on antibiotics, however, she states that the pain has worsened, and the rash has gotten worse. She is currently not on blood thinners, she is not a smo ker, she is not on control. She denies chest pain, shortness of breath, fevers, chills, abdominal pain, weakness, nausea, vomiting, diarrhea. Complaint: extremity pain (b/l lower exremities ) and extremity swelling Onset (ago): day(s) (3) Pain Consistency: constant Location: left, right and lower extremity Severity scale (1-10): 5 Quality: constant Radiation: none Relieving factors: nothing Exacerbating factors: palpation Associated symptoms: rash Related Data Home Medications Medication Instructions Recorded Confirmed buspirone 10 mg tablet 10 mg PO BID 02/16/20 03/08/20 levothyroxine 100 mcg tablet 100 mcg PO DAILY 02/16/20 03/08/20 losartan 50 mg tablet 50 mg PO DAILY 02/16/20 03/08/20 pravastatin 20 mg tablet mg PO 02/16/20 03/08/20 cholecalciferol (vitamin D3) 25 25 mcg PO DAILY 09/26/20 mcg (1,000 unit) capsule Previous Rx's Medication Instructions Recorded prednisone 20 mg tablet 40 mg PO DAILY 10 Days #20 tab 01/23/21 Allergies Allergy/AdvReac Type Severity Reaction Status Date / Time Penicillins [PENICILLINS] Allergy Intermediate RASH Verified 09/26/20 08:21 vancomycin [VANCOMYCIN] Allergy Intermediate ITCHY, RED Verified 09/26/20 08:21 BLOTCHES. lisinopril Allergy Unknown cough Verified 09/26/20 08:21 Review of Systems Review of Systems: Yes all other systems are reviewed and are negative PMFSH Past Medical History Medical History Anxiety Depression HTN (hypertension) Hyperlipemia Hypothyroidism Surgical History H/O abdominoplasty H/O bilateral breast reduction surgery History of removal of cyst History of vaginal hysterectomy Social History Social History Alcohol intake: never Patient Tobacco Use Status: Never used Tobacco Use of substances other than those prescribed or required for medical reasons: No Advance Directives: No Advance Directives Information Provided: Yes Patient : No Sexual orientation: Straight/Heterosexual Gender identity: Female Physical Exam Vital Signs: Vital Signs: Last Vital Signs Temp 98.4 F 01/23/21 12:54 Pulse 63 01/23/21 12:54 Resp 18 01/23/21 12:54 BP 136/85 01/23/21 12:54 Pulse Ox 100 01/23/21 12:54 Body Mass Index 31.4 Const: General: cooperative and no acute distress Orientation/consciousness: oriented to person and oriented to place Tellez itations: no limitations HENMT: Head: Yes normal to inspection, Yes normocephalic and Yes atraumatic Ears: external ears normal General nose exam: Normal external nose present Face and sinus: Yes normal facial exam Mouth: Normal oral and palatal mucosa present Throat: Yes posterior oropharynx normal Eyes: General: appearance normal, both eyes and all related structures Pupils: Equal, round and reactive pupils present Neck: Neck: Yes normal visual inspection, Yes no lymphadenopathy, Yes trachea midline and Yes supple Chest: Chest palpation & inspection: normal inspection of the chest and normal palpation of entire chest wall Resp: Effort & Inspection: normal respiratory effort and able to speak in complete sentences Auscultation: clear to auscultation bilaterally Cardio: Rate: regular rate Rhythm: regular rhythm Heart sounds: S1 normal heart sound present, S2 normal heart sound present and no murmurs GI: Inspection: Yes normal to inspection Palpation (GI): Soft to palpation, nontender and no guarding Auscultation: normal bowel sounds : General: Yes no CVA tenderness Back/Spine/Pelvis: Back: no CVA tenderness Skin: General skin exam: erythema (to left anterior medial garzon), petechiae (b/l lower extremities ) and other (Petechiae noted to bilateral lower extremities. ) Neuro: General: oriented to person and oriented to place Cranial nerves: Yes CN's II-XII intact bilaterally and Yes Equal, round and reactive pupils present Cognition (Neuro): normal cognition Motor exam (neuro): 5/5 motor strength present throughout Extrem: General: Yes normal to inspection and Yes calf tenderness (b/l) Psych: Appearance: grossly normal Speech and movement: Normal speech and movement present Affect: normal affect Attitude: cooperative Thought process: Normal thought process present Thought content: Normal thought content present Course Course Course Narrative: Leukopenia as noted, unchanged from 01/21/2021. ESR is normal, platelets are normal. Given the painful nature of the petechiae, this will be treated as a vasculitis will treat with 40mg of Po prednisone X10 days . Cellulitis is less likely in this case however she may continue taking her medications as prescribed. MDM - Extremity (Nontraumatic) MDM Narrative Medical decision making narrative: 60-year-old female past medical history of hypertension, hypothyroidism and dyslipidmia presents to the emergency department with bilateral lower extremity painful petechiae a half tenderness and swelling, and slight erythema to the left anterior medial garzon X3 days. She states she visited her PCP yesterday who thought this was cellulitis, they prescribed her antibiotics. She states that the calf pain, and the rash has gotten worse. Says she decided to come into the emergency department. She denies fevers, chills, shortness of breath, chest pain. Plan- EKG, CRP, CBC, CMP COVID,, ultrasound venous duplex of bilateral lower extremities. Will rule out PE. Lab Data Result diagrams: 01/23/21 15:02 01/23/21 15:02 Labs: Lab Results 01/23/21 01/23/21 01/23/21 Range/Units 15:02 15:02 15:02 WBC 4.3 L (4.8-10.8) X10*3/uL RBC 4.28 (4.20-5.50) X10*6/uL Hgb 11.7 L (12.0-16.0) g/dl Hct 37.1 (37-47) % MCV 86.7 (80-98) fL MCH 27.3 (27.0-33.0) pg MCHC 31.5 (31.0-35.0) g/dl RDW 13.0 (11.0-16.0) % Plt Count 211 (160-400) X10*3/uL MPV 10.9 (9.4-12.3) fL Immature Gran % (Auto) 0.2 (0.0-0.4) % Neut % (Auto) 45.4 (45-73) % Lymph % (Auto) 40.4 H (20-40) % [place] % (Auto) 8.4 (2-11) % Eos % (Auto) 4.9 H (0-4) % Baso % (Auto) 0.7 (0-2) % Lymph # (Auto) 1.7 (1.2-4.9) X10*3/uL [place] # (Auto) 0.4 (0.1-1.2) X10*3/uL Eos # (Auto) 0.2 (0.0-0.4) X10*3/uL Baso # (Auto) 0.0 (0.0-0.2) X10*3/uL Abs Immat Gran (auto) 0.01 (0.00-0.03) X10*3/uL Absolute Neuts (auto) 1.9 L (2.0-8.3) X10*3/uL Absolute Nucleated RBC 0.000 (0.0-0.012) X10*3/uL Nucleated RBC % (auto) 0.0 (0.0-0.2) /100WBC ESR (0-20) MM/HR Sodium 141 (135-145) mmol/L Potassium 4.1 (3.3-5.1) mmol/L Chloride 107 (96-108) mmol/L Carbon Dioxide 26 (22-29) mmol/L Anion Gap 12 (12-20) BUN 16 (9-16) mg/dL Creatinine 1.17 (0.5-1.4) mg/dL Estim Creat Clear Calc 57.2 Estimated GFR 47 Random Glucose 100 (60-115) mg/dL Calcium 9.2 (8.4-10.2) mg/dL Total Bilirubin 0.5 (0.0-1.0) mg/dL AST 19 (5-31) U/L ALT 18 (0-31) U/L Alkaline Phosphatase 93 (39-117) U/L C-Reactive Protein 0.34 (< or = 0.50) mg/dL Total Protein 6.6 (6.5-8.0) g/dL Albumin 4.0 (3.5-5.0) g/dL COVID-19 ([facility]) Negative (Negative) COVID-19 Clin Com See Note 01/23/21 Range/Units 15:02 WBC (4.8-10.8) X10*3/uL RBC (4.20-5.50) X10*6/uL Hgb (12.0-16.0) g/dl Hct (37-47) % MCV (80-98) fL MCH (27.0-33.0) pg MCHC (31.0-35.0) g/dl RDW (11.0-16.0) % Plt Count (160-400) X10*3/uL MPV (9.4-12.3) fL Immature Gran % (Auto) (0.0-0.4) % Neut % (Auto) (45-73) % Lymph % (Auto) (20-40) % [place] % (Auto) (2-11) % Eos % (Auto) (0-4) % Baso % (Auto) (0-2) % Lymph # (Auto) (1.2-4.9) X10*3/uL [place] # (Auto) (0.1-1.2) X10*3/uL Eos # (Auto) (0.0-0.4) X10*3/uL Baso # (Auto) (0.0-0.2) X10*3/uL Abs Immat Gran (auto) (0.00-0.03) X10*3/uL Absolute Neuts (auto) (2.0-8.3) X10*3/uL Absolute Nucleated RBC (0.0-0.012) X10*3/uL Nucleated RBC % (auto) (0.0-0.2) /100WBC ESR 12 (0-20) MM/HR Sodium (135-145) mmol/L Potassium (3.3-5.1) mmol/L Chloride (96-108) mmol/L Carbon Dioxide (22-29) mmol/L Anion Gap (12-20) BUN (9-16) mg/dL Creatinine (0.5-1.4) mg/dL Estim Creat Clear Calc Estimated GFR Random Glucose (60-115) mg/dL Calcium (8.4-10.2) mg/dL Total Bilirubin (0.0-1.0) mg/dL AST (5-31) U/L ALT (0-31) U/L Alkaline Phosphatase (39-117) U/L C-Reactive Protein (< or = 0.50) mg/dL Total Protein (6.5-8.0) g/dL Albumin (3.5-5.0) g/dL COVID-19 ([facility]) (Negative) COVID-19 Clin Com Discharge Plan Discharge Clinical Impression: Vasculitis, Petechiae Cellulitis Qualifiers: Site of cellulitis: extremity Site of cellulitis of extremity: lower extremity Laterality: left Qualified Code(s): L03.116 - Cellulitis of left lower limb Patient Disposition: Home, Self-Care Instructions: Cellulitis (ED) Additional Instructions: You have been diagnosed with vasculitis, which is a type of skin rash. It is usually treated with steroids. You will be prescribed prednisone. You can continue to take your antibiotics as prescribed by your PCP for cellulitis, skin infection. Ultrasound of both lower extremities showed no clots, no VTE. Follow-up with your PCP in 2 days Return to the emergency department with new or worsening symptoms Prescriptions: New prednisone 20 mg tablet 40 mg PO DAILY 10 Days Qty: 20 RF: 0 No Action cholecalciferol (vitamin D3) 25 mcg (1,000 unit) capsule 25 mcg PO DAILY RF: 0 pravastatin 20 mg tablet PO RF: 0 levothyroxine 100 mcg tablet 100 mcg PO DAILY RF: 0 losartan 50 mg tablet 50 mg PO DAILY RF: 0 buspirone 10 mg tablet 10 mg PO BID RF: 0
[2021-01-23 15:11] LABS: Basophils Percent Auto 0.7 % (0-2); Eosinophils Absolute Auto 0.2 X10*3/uL (0.0-0.4); Eosinophils Percent Auto 4.9 % (0-4); Hematocrit 37.1 % (37-47); Hemoglobin 11.7 g/dl (12.0-16.0); Imm Gran Abs Auto 0.01 X10*3/uL (0.00-0.03); Imm Gran Pct Auto 0.2 % (0.0-0.4); Lymphocytes Absolute Auto 1.7 X10*3/uL (1.2-4.9); Lymphocytes Percent Auto 40.4 % (20-40); MANUAL DIFF FLAG NO; Mean Corpuscular HGB Conc 31.5 g/dl (31.0-35.0); Mean Corpuscular Hemoglobin 27.3 pg (27.0-33.0); Mean Corpuscular Volume 86.7 fL (80-98); Mean Platelet Volume 10.9 fL (9.4-12.3); Monocytes Absolute Auto 0.4 X10*3/uL (0.1-1.2); Monocytes Percent Auto 8.4 % (2-11); Neutrophils Absolute Auto 1.9 X10*3/uL (2.0-8.3); Neutrophils Percent Auto 45.4 % (45-73); Platelet Count 211 X10*3/uL (160-400); Red Blood Count 4.28 X10*6/uL (4.20-5.50); White Blood Count 4.3 X10*3/uL (4.8-10.8)
[2021-01-23 15:28] LABS: COVID-19 Test Negative (Negative)
[2021-01-23 15:33] LABS: Alanine Aminotransferase 18 U/L (0-31); Alkaline Phosphatase 93 U/L (39-117); Anion Gap 12 (12-20); Aspartate Amino Transferase 19 U/L (5-31); Bilirubin Total 0.5 mg/dL (0.0-1.0); Blood Urea Nitrogen 16 mg/dL (9-16); C Reactive Protein 0.34 mg/dL (< or = 0.50); Calcium 9.2 mg/dL (8.4-10.2); Carbon Dioxide 26 mmol/L (22-29); Chloride 107 mmol/L (96-108); Creatinine Clr Calc Pharmacy 57.2; Estimated Glomerular Filt Rate 47; Glucose Random 100 mg/dL (60-115); Potassium 4.1 mmol/L (3.3-5.1); Sodium 141 mmol/L (135-145); Total Protein 6.6 g/dL (6.5-8.0)
[2021-01-23 16:04] LABS: Erythrocyte Sedimentation Rate 12 MM/HR (0-20)
== END 2021-01-23 16:44 | disposition home or self-care (01) ==
PROVIDERS: Emergency Provider Emergency Medicine Emergency Medical Services; PCP Internal Medicine
DX: L03.116 Cellulitis of left lower limb (principal); M79.605 Pain in left leg; R23.3 Spontaneous ecchymoses; R00.2 Palpitations; R60.0 Localized edema; Z20.822 Contact with and (suspected) exposure to COVID-19; Z79.899 Other long term (current) drug therapy
CPT/HCPCS: 36415; 80053; 85025; 85652; 86140; 87635; 93005; 93970; 99284

== ENCOUNTER 2021-05-22 15:16 | Outpatient (REF) | payer OTHER, SELFPAY ==
--- NOTE | ~2021-05-22 | XR_ITS ---
EXAMINATION: XR CHEST CLINICAL INFORMATION: Persistent cough. COMPARISON: Chest radiograph dated from 11/14/2012. TECHNIQUE: 2 views of the chest were obtained. FINDINGS: Stable appearance of the cardiomediastinal silhouette. Increased interstitial markings predominantly in the lower lungs without focal airspace opacities, pleural effusions or pneumothorax. Thoracic spondylosis. No acute osseous abnormalities. XR/XR chest 2V IMPRESSION: Increased interstitial markings with a lower lobe predominance which is nonspecific and could be related with bronchitis, asthma, reactive airways disease or atypical viral infections
== END 2021-05-22 15:17 | disposition home or self-care (01) ==
LOC: HO.XRAY 15:16
PROVIDERS: PCP Internal Medicine; Visit Provider Internal Medicine
DX: R05.8 Other specified cough (principal); Z86.16 Personal history of COVID-19
CPT/HCPCS: 71046

== ENCOUNTER 2021-06-09 06:26 | Emergency (ER) | payer OTHER, SELFPAY ==
[2021-06-09 06:28] VITALS: BP 127/77; PULSE 86; RESP 16; TEMP 36.9; O2SAT 96; BMI 29.9
--- NOTE | 2021-06-09 08:10 | ED_ITS ---
HPI - Skin/Abscess/Foreign Bdy General Chief complaint: Skin/Abscess/Foreign Body Stated complaint: cist? Time Seen by Provider: 06/09/21 08:10 Source: patient Mode of arrival: ambulatory Limitations: no limitations History of Present Illness HPI narrative: Patient is a 60 year old female presenting to the emergency department today with an abdominal cyst/abscess. Patient states that for the last few years, she has had this abdominal cyst, that ruptures and then goes away. Patient states that just a few days ago, it ruptured again, and a lot of pus came out. Patient denies any dizziness, lightheadedness, abdominal pain, nausea, vomiting, fever, chills, blurry vision, double vision, loss of vision, chest pain, difficulty breathing, shortness of breath, back pain, night sweats, pain with urination, increased urinary frequency, increased urinary urgency, blood in her urine or stool, syncope or a near syncopal episode, recent trauma or falls, bowel incontinence, bladder incontinence, bowel retention, bladder retention, or any other complaints at this time. MD complaint: abscess/boil Onset (ago): year(s) Relieving factors: none Exacerbating factors: none Context: none Associated symptoms: denies other symptoms Related Data Home Medications Medication Instructions Recorded Confirmed buspirone 10 mg tablet 10 mg PO BID 02/16/20 03/08/20 levothyroxine 100 mcg tablet 100 mcg PO DAILY 02/16/20 03/08/20 losartan 50 mg tablet 50 mg PO DAILY 02/16/20 03/08/20 pravastatin 20 mg tablet mg PO 02/16/20 03/08/20 cholecalciferol (vitamin D3) 25 25 mcg PO DAILY 09/26/20 mcg (1,000 unit) capsule Previous Rx's Medication Instructions Recorded prednisone 20 mg tablet 40 mg PO DAILY 10 Days #20 tab 01/23/21 cephalexin 500 mg capsule 500 mg PO Q6H 7 Days #28 cap 06/09/21 Allergies Allergy/AdvReac Type Severity Reaction Status Date / Time Penicillins [PENICILLINS] Allergy Intermediate RASH Verified 06/09/21 06:34 vancomycin [VANCOMYCIN] Allergy Intermediate ITCHY, RED Verified 06/09/21 06:34 BLOTCHES. lisinopril Allergy Unknown cough Verified 06/09/21 06:34 Review of Systems Constitutional: Constitutional: Reports no additional constitutional complaints, Denies chills, Denies fever(s) and Denies night sweats Eyes: Eyes: Reports no additional eye complaints, Denies blurry vision, Denies change in vision, Denies diplopia, Denies eye discharge, Denies loss of vision and Denies eye pain ENT: Denies dizziness Cardiovascular: Cardiovascular: Reports no additional cardiovascular complaints, Denies chest pain, Denies lightheadedness, Denies Loss of Consciousness and Denies dyspnea Respiratory: Respiratory: Reports no additional respiratory complaints and Denies dyspnea Gastrointestinal: Gastrointestinal: Reports no additional gastrointestinal complaints, Denies abdominal pain, Denies melena, Denies hematochezia, Denies change in bowel habits and Denies change in stool character Genitourinary: Genitourinary: Denies hematuria, Denies urinary frequency, Denies dysuria, Denies urinary incontinence, Denies urinary hesitancy and Denies urinary urgency Musculoskeletal: Musculoskeletal: Reports no additional musculoskeletal complaints, Denies numbness and Denies tingling Integumentary/Breasts: Comments: Abdominal abscess Neurologic: Denies dizziness, Denies loss of vision, Denies numbness and Denies tingling Psychiatric: Psychiatric: Reports no additional psychiatric complaints Endocrine: Endocrine: Reports no additional endocrine complaints Hematologic/Lymphatic: Hematologic/Lymphatic: Reports no additional hematologic/lymphatic complaints Allergic/Immunologic: Allergic/Immunologic: Reports no additional allergic/immunologic complaints PMF Past Medical History Attestation statement: The following information was validated with the patient. Medical History Anxiety Depression HTN (hypertension) Hyperlipemia Hypothyroidism Surgical History H/O abdominoplasty H/O bilateral breast reduction surgery History of removal of cyst History of vaginal hysterectomy Social History Social History Alcohol intake: never Patient Tobacco Use Status: Never used Tobacco Advance Directives: No Advance Directives Information Provided: Yes Patient : No Sexual orientation: Straight/Heterosexual Gender identity: Female Physical Exam Vital Signs: Vital Signs: Last Vital Signs Temp 98.4 F 06/09/21 06:28 Pulse 86 06/09/21 06:28 Resp 16 06/09/21 06:28 BP 127/77 06/09/21 06:28 Pulse Ox 96 06/09/21 06:28 BMI result Body Mass Index 29.9 Const: General: cooperative, no acute distress, alert and awake Nutritional Appearance: well nourished Orientation/consciousness: patient oriented x3 Limitations: no limitations HENMT: Head: Yes normal to inspection and Yes atraumatic Ears: hearing grossly normal bilaterally and external ears normal General nose exam: Normal external nose present, no nasal discharge noted and no epistaxis Face and sinus: Yes normal facial exam, No abrasion and No laceration Mouth: Normal oral and palatal mucosa present, no drooling and no muffled voice Eyes: General: appearance normal, both eyes and all related structures Periorbital: periorbital findings normal Eyelids: Yes eyelids normal Conjunctivae: conjunctivae normal Pupils: Equal, round and reactive pupils present EOM: EOMs intact bilaterally Neck: Neck: Yes normal visual inspection, Yes full ROM and Yes no lymphadenopathy Chest: Chest palpation & inspection: normal inspection of the chest Resp: Effort & Inspection: normal respiratory effort and able to speak in complete sentences GI: Inspection: Yes normal to inspection Skin: Other: Small abscess located laterally to the left of the navel, actively draining, no streaking redness or warmth Neuro: General: patient oriented x3 and moves all extremities Cranial nerves: Yes Equal, round and reactive pupils present Cognition (Neuro): normal cognition Motor exam (neuro): 5/5 motor strength present throughout Sensory Exam: Normal double simultaneous stimulation for sensation Coordination: [id number] test normal Extrem: General: Yes normal to inspection, Yes full ROM and Yes capillary refill normal Psych: Appearance: grossly normal Mental Status: mental status grossly normal Affect: normal affect Attitude: cooperative Thought process: Normal thought process present Thought content: Normal thought content present Insight: Good insight present (Psych) MDM - Skin/Abscess/Foreign Bdy MDM Narrative Medical decision making narrative: Patient is a 60 year old female presenting to the emergency department today with an abdominal abscess. Patient's physical exam showed a small abscess just laterally left of the navel, actively draining, with no streaking redness or surrounding warmth. I explained my physical exam findings to the patient. I answered all questions asked by the patient. I explained to the patient that there was no area that needed to be lanced further, and that she should follow- up with a surgeon after the completion of her oral antibiotics. I stressed the importance of the patient taking her medication as prescribed. I stressed the importance of the patient following up with her primary care provider and surgeon. I stressed the importance of the patient returning to the emergency department immediately if her symptoms were to worsen or if she were to develop any dizziness, shortness of breath, difficulty breathing, chest pain, blurry vision, loss of vision, nausea, vomiting, abdominal pain, fever, chills, back pain, or any other complaints. Patient verbalized agreement and understanding with this treatment plan and discharge. Differential Diagnosis Differential diagnosis: Likely abscess of skin or subcutaneous tissue and cellulitis Medical Records Attestation: I reviewed the patient's medical records. Discharge Plan Discharge Clinical Impression: Abscess Patient Disposition: Home, Self-Care Instructions: Abscess (ED) Additional Instructions: Follow up with your primary care provider and a general surgeon. Take your antibiotics as perscribed. Return to the emergency department immediately if your symptoms worsen or if you develop any dizziness, shortness of breath, difficulty breathing, chest pain, blurry vision, loss of vision, nausea, vomiting, abdominal pain, fever, chills, back pain, or any other complaints. Prescriptions: New cephalexin 500 mg capsule 500 mg PO Q6H 7 Days Qty: 28 0RF No Action prednisone 20 mg tablet 40 mg PO DAILY 10 Days Qty: 20 0RF cholecalciferol (vitamin D3) 25 mcg (1,000 unit) capsule 25 mcg PO DAILY 0RF pravastatin 20 mg tablet PO 0RF levothyroxine 100 mcg tablet 100 mcg PO DAILY 0RF losartan 50 mg tablet 50 mg PO DAILY 0RF buspirone 10 mg tablet 10 mg PO BID 0RF Referrals: Margarita Corona MD [Physician] - 2 days Interventions: ED Discharge Assessment Last Done: 06/09/21 08:35 Discharge Date/Time: 06/09/21 08:35 Print Language: Danish
== END 2021-06-09 08:35 | disposition home or self-care (01) ==
PROVIDERS: Emergency Provider Emergency Medicine
DX: L02.211 Cutaneous abscess of abdominal wall (principal); Z79.899 Other long term (current) drug therapy
CPT/HCPCS: 99283

== ENCOUNTER 2021-09-20 15:47 | Outpatient (REF) | payer OTHER, SELFPAY ==
--- NOTE | ~2021-09-20 | US_ITS ---
EXAMINATION: US THYROID CLINICAL INFORMATION: Dysphagia COMPARISON: None TECHNIQUE: Linear transducer grayscale and color Doppler examination with attention to the region of the thyroid. FINDINGS: SIZE: Measurements of the thyroid lobes and nodules are given in sagittal, anteroposterior and transverse dimensions respectively. Right Thyroid Lobe: 2.6 x 0.7 x 0.9 cm, volume 0.9 mL. Parenchyma: The gland echotexture is homogeneous. Thyroid vascularity is normal. Left Thyroid Lobe: 2.8 x 1.3 x 1.5 cm, volume 2.9 mL. Parenchyma: The gland echotexture is homogeneous. Thyroid vascularity is normal. Isthmus: 0.2 cm in maximum AP dimension. Estimated total number of nodules greater than or equal to 1 cm: 1. [employer] nodules are described as follows: 1. Location: Left mid. Size: 1.5 x 1.1 x 1.1 cm, volume 0.9 mL. Nodule characteristics: Composition: Solid/almost completely solid (2). Echogenicity: Isoechoic (1). Shape: Not taller than wide (0). Margins: Smooth (0). Echogenic Foci: None (0). ACR TI-RADS total points: 3 ACR TI-RADS category: 3 NODES: No lymphadenopathy is seen in the tissue surrounding the thyroid gland. US/US thyroid IMPRESSION: A left thyroid lobe nodule seen, as detailed. Recommend continued thyroid ultrasound surveillance. ACR TI-RADS RECOMMENDATION REFERENCE: Ultrasound-guided fine-needle aspiration, followup ultrasound, no further follow up. * TR1 (0 point) and TR 2 (2 points): No FNA or follow up * TR3 (3 points): FNA if more than or equal to 2.5 cm in maximum dimension, followup ultrasound in 1, 3 and 5 years if 1.5 to 2.4 cm in maximum dimension. * TR4 (4-6 points): FNA if more than or equal to 1.5 cm in maximum dimension, followup ultrasound in 1, 2, 3 and 5 years if 1 to 1.4 cm in maximum dimension. * TR5 (more than or equal to 7 points): FNA if more than or equal to 1 cm in maximum dimension, followup ultrasound every year for 5 years if 0.5 to 0.9 cm in maximum dimension. * TR3, TR4 or TR5 nodules that are below the size threshold for follow up receive no follow up.
== END 2021-09-20 15:48 | disposition home or self-care (01) ==
LOC: HO.US 15:47
PROVIDERS: PCP Internal Medicine; Visit Provider Internal Medicine
DX: R13.10 Dysphagia, unspecified (principal)
CPT/HCPCS: 76536

== ENCOUNTER 2021-10-07 10:40 | Outpatient (REF) | payer OTHER, SELFPAY ==
[2021-10-08 05:35] LABS: CT PCR NOT DETECTED (Not Detect.); NG PCR NOT DETECTED (Not Detect.)
== END 2021-10-07 10:41 | disposition home or self-care (01) ==
LOC: HO.LAB 10:40
PROVIDERS: Visit Provider Obstetrics & Gynecology
DX: Z01.419 Encounter for gynecological examination (general) (routine) without abnormal findings (principal); R10.2 Pelvic and perineal pain
CPT/HCPCS: 81025; 87491; 87591

== ENCOUNTER 2021-10-21 15:52 | Outpatient (REF) | payer OTHER, SELFPAY ==
--- NOTE | ~2021-10-21 | MM_ITS ---
EXAMINATION: MM SCREENING DIGITAL BREAST TOMOSYNTHESIS, BILATERAL CLINICAL INFORMATION: Screening. Asymptomatic. History reduction mammoplasty, 2012. The lifetime risk of breast cancer based on the Tyrer-Cuzick Model is 8%. COMPARISON: Mammography: 10/19/2020, 12/03/2018, 10/14/2017 TECHNIQUE: Digital breast tomosynthesis is performed in both the craniocaudal and mediolateral oblique views along with computer-aided detection (CAD). Synthesized 2D images are generated from the tomosynthesis. Additional right MLO view is provided. FINDINGS: There are scattered areas of fibroglandular density (ACR BI-RADS breast composition Category b). There is minor bilateral scarring and scattered benign round and rim calcifications consistent with the reduction mammoplasty. Breast parenchymal pattern is stable. Again, chronic nodular asymmetry is present anterior 3:00 left breast. There is no significant mass or interval architectural abnormality or abnormal calcifications. The axilla are unremarkable. No significant changes. MM/MM tomosynthesis screening BI IMPRESSION: No mammographic evidence of malignancy. ASSESSMENT: BI-RADS 2: Benign RECOMMENDATION: Routine annual mammography screening. This patient's information was entered into a reminder system with a target due date for their next mammogram.
== END 2021-10-21 15:53 | disposition home or self-care (01) ==
LOC: HO.MAMMO 15:52
PROVIDERS: PCP Internal Medicine; Visit Provider Internal Medicine
DX: Z12.31 Encounter for screening mammogram for malignant neoplasm of breast (principal)
CPT/HCPCS: 77063; 77067

== ENCOUNTER 2021-11-14 15:41 | Outpatient (REF) | payer OTHER, SELFPAY ==
--- NOTE | ~2021-11-14 | US_ITS ---
EXAMINATION: US PELVIS CLINICAL INFORMATION: Pelvic pain COMPARISON: Pelvic ultrasound 03/06/2020 TECHNIQUE: Ultrasound of the pelvis is performed using both transabdominal and transvaginal transducers along with Doppler. Transvaginal imaging is performed due to inadequate visualization transabdominally. FINDINGS: Uterus: Status post total hysterectomy. A 0.9 cm cyst is noted along the vaginal cuff. Adnexa: The ovaries were not identified sonographically. No adnexal mass. No free fluid. US/US pelvic and transvaginal IMPRESSION: Status post total hysterectomy. A 0.9 cm cyst is noted along the vaginal cuff, differential considerations could include Daniels duct cyst, [place] duct cyst or Bartholin gland cyst. Ovaries were not identified sonographically. No adnexal mass.
== END 2021-11-14 15:42 | disposition home or self-care (01) ==
LOC: HO.US 15:41
PROVIDERS: Visit Provider Obstetrics & Gynecology
DX: R10.2 Pelvic and perineal pain (principal)
CPT/HCPCS: 76830; 76856

== ENCOUNTER 2021-11-25 06:14 | Outpatient (REF) | payer OTHER, SELFPAY ==
--- NOTE | ~2021-11-25 | XR_ITS ---
EXAMINATION: 1. RADIOGRAPHS RIGHT FOOT 2. RADIOGRAPHS LEFT FOOT CLINICAL INFORMATION: Bilateral bunions COMPARISON: None TECHNIQUE: 3 views of each foot were obtained. FINDINGS: Right foot: Bones of the midfoot are well aligned. No tarsal, metatarsal or phalangeal fracture. Mild degenerative changes of the first MTP joint and scattered IP joints. No focal soft tissue swelling of the right foot. No radiopaque foreign body. No gross ankle joint effusion. Left foot: Bones of the midfoot are well aligned. No tarsal, metatarsal or phalangeal fracture. Mild degenerative changes of the first MTP joint and scattered IP joints. No focal soft tissue swelling of the left foot. Small posterior calcaneal enthesophyte. No gross ankle joint effusion. XR/XR foot LT min 3V IMPRESSION: Mild degenerative changes of both feet. No fracture.
--- NOTE | ~2021-11-25 | XR_ITS ---
EXAMINATION: 1. RADIOGRAPHS RIGHT FOOT 2. RADIOGRAPHS LEFT FOOT CLINICAL INFORMATION: Bilateral bunions COMPARISON: None TECHNIQUE: 3 views of each foot were obtained. FINDINGS: Right foot: Bones of the midfoot are well aligned. No tarsal, metatarsal or phalangeal fracture. Mild degenerative changes of the first MTP joint and scattered IP joints. No focal soft tissue swelling of the right foot. No radiopaque foreign body. No gross ankle joint effusion. Left foot: Bones of the midfoot are well aligned. No tarsal, metatarsal or phalangeal fracture. Mild degenerative changes of the first MTP joint and scattered IP joints. No focal soft tissue swelling of the left foot. Small posterior calcaneal enthesophyte. No gross ankle joint effusion. XR/XR foot RT min 3V IMPRESSION: Mild degenerative changes of both feet. No fracture.
[2021-11-25 06:33] LABS: MANUAL DIFF FLAG NO
[2021-11-25 07:29] LABS: Basophils Absolute Auto 0.1 X10*3/uL (0.0-0.2); Eosinophils Absolute Auto 0.2 X10*3/uL (0.0-0.4); Eosinophils Percent Auto 3.2 % (0-4); Hematocrit 37.5 % (37.0-47.0); Hemoglobin 11.9 g/dl (12.0-16.0); Imm Gran Abs Auto 0.03 X10*3/uL (0.00-0.03); Imm Gran Pct Auto 0.5 % (0.0-0.4); Lymphocytes Absolute Auto 2.4 X10*3/uL (1.2-4.9); Lymphocytes Percent Auto 38.7 % (20-40); Mean Corpuscular HGB Conc 31.7 g/dl (31.0-35.0); Mean Corpuscular Hemoglobin 27.4 pg (27.0-33.0); Mean Corpuscular Volume 86.4 fL (80.0-98.0); Mean Platelet Volume 11.1 fL (9.4-12.3); Monocytes Absolute Auto 0.7 X10*3/uL (0.1-1.2); Monocytes Percent Auto 10.5 % (2-11); Neutrophils Absolute Auto 2.9 x10*3/uL (2.0-8.3); Neutrophils Percent Auto 46.1 % (45-73); Platelet Count 239 X10*3/uL (160-400); Red Blood Count 4.34 X10*6/uL (4.20-5.50); Red Cell Distribution Width 12.9 % (11.0-16.0); White Blood Count 6.2 X10*3/uL (4.8-10.8)
[2021-11-25 07:52] LABS: Alanine Aminotransferase 19 U/L (0-31); Albumin Level 4.3 g/dL (3.5-5.0); Alkaline Phosphatase 97 U/L (39-117); Anion Gap 14 (12-20); Aspartate Amino Transferase 19 U/L (5-31); Bilirubin Total 0.4 mg/dL (0.0-1.0); Blood Urea Nitrogen 23 mg/dL (9-16); Calcium 9.2 mg/dL (8.4-10.2); Carbon Dioxide 25 mmol/L (22-29); Chloride 107 mmol/L (96-108); Estimated Glomerular Filt Rate 43; Glucose Fasting 105 mg/dL (60-99); Potassium 4.4 mmol/L (3.3-5.1); Sodium 142 mmol/L (135-145); Total Protein 6.6 g/dL (6.5-8.0); Uric Acid 5.8 mg/dL (2.4-5.7)
[2021-11-25 08:15] LABS: Free T4 (Free Thyroxine) 1.23 ng/dL (0.71-1.85); Thyroid Stimulating Hormone 2.63 uIU/mL (0.32-4.0)
== END 2021-11-25 06:15 | disposition home or self-care (01) ==
LOC: HO.LAB 06:14
PROVIDERS: PCP Internal Medicine; Visit Provider Internal Medicine
DX: Z00.00 Encounter for general adult medical examination without abnormal findings (principal); M21.611 Bunion of right foot; M21.612 Bunion of left foot; E03.9 Hypothyroidism, unspecified
CPT/HCPCS: 36415; 73630; 80053; 82306; 84439; 84443; 84550; 85025

== ENCOUNTER 2021-12-24 14:51 | Outpatient (REF) | payer OTHER, SELFPAY ==
--- NOTE | ~2021-12-24 | CT_ITS ---
EXAMINATION: CT PELVIS WITHOUT CONTRAST CLINICAL INFORMATION: Pelvic and perineal pain. COMPARISON: None TECHNIQUE: Helical scanning was performed with submillimeter collimation through the pelvis. Sagittal and coronal multiplanar 2-D reconstructions were obtained. This CT examination was performed using dose optimization techniques as appropriate, variously including the following: *Automated exposure control *Adjustment of mA and/or kV according to patient size (this includes techniques or standardized protocols for targeted exams where dose is matched to indication/reason for exam; i.e. extremities or head) *Use of iterative reconstruction technique DLP: 505 mGy-cm FINDINGS: PELVIS: There is scattered stool in the colon without distention. The small bowel loops are normal caliber. The urinary bladder is nondistended. The uterus is atrophic or surgically removed. There is a solitary phlebolith in the left pelvis. No abnormal size iliac or pelvic lymph nodes seen. There are changes of tummy tuck surgical changes along the anterior abdominal wall. OSSEOUS STRUCTURES: Bone windows reveal no lytic or sclerotic process. There are mild degenerative disc changes at the L5-S1 disc level. CT/CT pelvis wo IV con IMPRESSION: Anterior bladder wall tummy tuck surgical changes. No acute process seen in the pelvis.
== END 2021-12-24 14:52 | disposition home or self-care (01) ==
LOC: HO.CT 14:51
PROVIDERS: PCP Internal Medicine; Visit Provider Obstetrics & Gynecology
DX: R10.2 Pelvic and perineal pain (principal)
CPT/HCPCS: 72192

== ENCOUNTER 2022-01-01 05:54 | Outpatient (REF) | payer OTHER, SELFPAY ==
[2022-01-01 07:59] LABS: Cholesterol 226 mg/dL; HDL Cholesterol 39 mg/dL; LDL Cholesterol Calculated 141 mg/dl; Triglycerides 232 mg/dL
== END 2022-01-01 05:55 | disposition home or self-care (01) ==
LOC: HO.LAB 05:54
PROVIDERS: PCP Internal Medicine; Visit Provider Internal Medicine
DX: E78.00 Pure hypercholesterolemia, unspecified (principal)
CPT/HCPCS: 36415; 80061

== ENCOUNTER 2022-01-08 10:36 | Day surgery (SDC) | payer OTHER, SELFPAY ==
[2022-01-08 10:57] VITALS: BP 136/85; PULSE 65; RESP 16; TEMP 36.4; O2SAT 98
[2022-01-08 11:20] VITALS: BMI 30.4
[2022-01-08] MEDS: Lactated Ringers 1,000 ML 50 ML IVCONT (11:37)
--- NOTE | 2022-01-08 12:20 | MHC.SHP ---
Pre-Procedural Eval Section A Date of Service: 01/08/22 Section B Chief Complaint: hx of colon polyps Relevant Family History (Specify if Yes): No Relevant Social History: None Present Medications: see Short Stay Collaborative assessment Medical History: Significant History (Anxiety Depression HTN (hypertension) Hyperlipemia Hypothyroidism) History of Previous Operations: Relevant previous surgery/procedure and date(s) (H/O abdominoplasty H/O bilateral breast reduction surgery H/O colonoscopy History of removal of cyst History of vaginal hysterectomy Hx of tonsillectomy) Allergies: Allergies Allergy/AdvReac Type Severity Reaction Status Date / Time Penicillins [PENICILLINS] Allergy Intermediate RASH Verified 01/03/22 12:31 vancomycin [VANCOMYCIN] Allergy Intermediate ITCHY, RED Verified 01/03/22 12:31 BLOTCHES. lisinopril Allergy Unknown cough Verified 01/03/22 12:31 Review of Systems Sugical H&P ROS: Negative: Constitution, Cardiovascular, Respiratory, Neurological, Psychiatric, Hem-Onc, Allergic/Immunologic, Gastrointestinal, Genitourinary, Musculoskeletal, Integumentary, Endocrine and Eyes/Ears/Nose/Throat Exam Surgical H&P Exam: Normal: HEENT, Normal: Heart, Normal: Lungs, Normal: Extremities, Normal: Abdomen, Normal: Skin and Normal: Neurological Plan Diagnosis/Plan: Unchanged I have reviewed the history and physical and performed a pertinent physical examination on my patient. No changes have occurred unless specified.
--- NOTE | 2022-01-08 12:23 | P.CONAN_ITS ---
FORMERLY [facility] Active Problems Active Problems: All Active Problems (Updated 01/08/22 @ 11:19 by Nisha Prince RN) Complex cyst of left ovary (Acute) Vaccine reaction (Acute) Well woman exam (Acute) Pelvic pain (Acute) Gout (Acute) Tubular adenoma of colon (Acute) Pre-op examination (Acute) Past Medical History Medical History (Updated 01/08/22 @ 11:19 by Nisha Prince RN) Anxiety Depression HTN (hypertension) Hyperlipemia Hypothyroidism Sleep apnea Family History Family History (Updated 01/03/22 @ 12:30 by ALL Topete) Father Cancer Alzheimer disease Maternal Grandmother Colon cancer Breast cancer Lung cancer Family history of problems with anesthesia: No Surgical History Surgical History (Updated 01/03/22 @ 12:28 by ALL Topete) H/O abdominoplasty H/O bilateral breast reduction surgery H/O colonoscopy History of removal of cyst History of vaginal hysterectomy Hx of tonsillectomy History of Problems with Anesthesia: No Social History Social History Alcohol intake: never Patient Tobacco Use Status: Never used Tobacco Use of substances other than those prescribed or required for medical reasons: No Are you DNR?: No Advance Directives: No Advance Directives Information Provided: Yes Sexual orientation: Straight/Heterosexual Gender identity: Female Meds Allergies Allergy/AdvReac Type Severity Reaction Status Date / Time Penicillins [PENICILLINS] Allergy Intermediate RASH Verified 01/03/22 12:31 vancomycin [VANCOMYCIN] Allergy Intermediate ITCHY, RED Verified 01/03/22 12:31 BLOTCHES. lisinopril Allergy Unknown cough Verified 01/03/22 12:31 Active Medications: Current Medications Lactated Ringer's (Lr) 1,000 mls @ 50 mls/hr IVCONT .Q20H JANEL Last Admin: 01/08/22 11:37 Dose: 50 mls/hr Home Medications Medication Instructions Recorded Confirmed Last Taken Type buspirone 10 mg tablet 10 mg PO BID 02/16/20 03/08/20 Unknown History levothyroxine 100 mcg tablet 100 mcg PO DAILY 02/16/20 01/08/22 01/08/22 History losartan 50 mg tablet 50 mg PO DAILY 02/16/20 01/08/22 01/08/22 History pravastatin 20 mg tablet mg PO 02/16/20 03/08/20 Unknown History cholecalciferol (vitamin D3) 25 25 mcg PO DAILY 09/26/20 Unknown History mcg (1,000 unit) capsule Exam Exam Date and Time: January 08, 2022 1223 Height,Weight and Vital Signs: Height 5 ft 6 in Weight 85.729 kg Last Vital Signs Temp 97.5 F 01/08/22 10:57 Pulse 65 01/08/22 10:57 Resp 16 01/08/22 10:57 BP 136/85 01/08/22 10:57 Pulse Ox 98 01/08/22 10:57 O2 Del Method 01/08/22 10:57 Airway Mallampati Class: II TM Dist: >3cm Neck ROM: Full Heart: rrr Lungs: cta Assessment and Plan Assessment Anesthesia Assessment: Anesthesia Plan Discussed and Chart Reviewed Final Anesthetic Review Family History of Problems with Anesthesia: No History of Problems with Anesthesia: No NPO: Yes ASA Class: II Final Preanesthetic Review: No Changes in Pt Med Stat, Meds/Allgs Chart Reviewed and Consent Obtained/Reviewed Patient Risk: Intermediate Procedure Risk: Intermediate Anesthetic Plan Anesthetic Plan: MAC: Disposition: Standard PACU
--- NOTE | 2022-01-08 12:57 | W.PM.OPN ---
Operative Note Operative Note Date of Service: 01/08/22 Narrative: Operative Information Procedure Description: Colonoscopy Indication: hx of colon polyps Anesthesia: MAC COLONOSCOPY Instrument: Olympus variable stiffness pediatric scope 190L Colonoscopy Monitoring: Vital signs and clinical assessment, continuous EKG monitoring, Pulse oximetry, Carbon Dioxide monitoring and blood pressure monitoring were done throughout the procedure. Colon withdrawal time was 15 minutes. Procedure: The patient was placed in the left lateral decubitis position and pre-procedure medications were administered. After a digital rectal examination of the ano-rectum, the video colonoscope was inserted into the rectum and advanced through the colon to the cecum/TI. The colonoscope was slowly withdrawn in a retrograde panoramic fashion and the colon mucosa was carefully examined including a retroflexed view of the rectum. Findings and interventions are described below. Procedure Difficulty: easy Findings: Terminal Ileum-normal right sided retroflexion was normal Cecum:normal Ascending Colon: normal Transverse Colon - 6-8 mm sessile polyp removed with cold forceps Descending Colon:normal Sigmoid Colon: mild diverticulosis Rectum: Retroflexion with small internal hemorrhoids, grade I Anorectum - normal Colon preparation: [place] Bowel Preparation Scale Right colon; 2 Transverse colon: 3 Left colon; 3 (0 = Unprepared colon segment with mucosa not seen due to solid stool that cannot be cleared. 1 = Portion of mucosa of the colon segment seen, but other areas of the colon segment not well seen due to staining, residual stool and/or opaque liquid. 2 = Minor amount of residual staining, small fragments of stool and/or opaque liquid, but mucosa of colon segment seen well. 3 = Entire mucosa of colon segment seen well with no residual staining, small fragments of stool or opaque liquid) Impression and Post Procedure Diagnosis: polyp internal hemorrhoids diverticular disease Plan: High fiber diet leaflet Avoid straining at stool, epsom salts and sitz bath, anusol supps or cream Repeat Colonoscopy in 5 years due to personal and FH of colon polyps or earlier if clinically indicated Above findings were reviewed with the patient and relevant handouts were provided if indicated.
[2022-01-08 13:01] VITALS: BP 116/82; PULSE 64; RESP 16; TEMP 37; O2SAT 98
[2022-01-08 13:24] VITALS: BP 140/79; PULSE 56; RESP 18; TEMP 37; O2SAT 100
== END 2022-01-08 13:50 | disposition home or self-care (01) ==
PROVIDERS: PCP Internal Medicine; Visit Provider Internal Medicine Gastroenterology
PROC: 0DJD8ZZ Inspection of Lower Intestinal Tract, Via Natural or Artificial Opening Endoscopic (ICD-10-PCS; CPT 45378; principal; 2022-01-08 12:50)
DX: Z12.11 Encounter for screening for malignant neoplasm of colon (principal); Z86.010 Personal history of colon polyps; D12.3 Benign neoplasm of transverse colon; K57.30 Diverticulosis of large intestine without perforation or abscess without bleeding; K64.0 First degree hemorrhoids; I10 Essential (primary) hypertension; E78.5 Hyperlipidemia, unspecified; E03.9 Hypothyroidism, unspecified; F32.A Depression, unspecified; Z79.899 Other long term (current) drug therapy; F41.1 Generalized anxiety disorder; Z88.0 Allergy status to penicillin; Z88.1 Allergy status to other antibiotic agents; Z88.8 Allergy status to other drugs, medicaments and biological substances
CPT/HCPCS: 45380; 88305